=== PATIENT | female | born 1945 | race African-American/Black ===

== ENCOUNTER 2018-05-19 11:12 | Inpatient (IN) | payer BC, OTHER ==
[~2018-05-19] VITALS: Ht 152.4 cm; Wt 45.4 kg
[2018-05-19] MEDS ORDERED: ONDANSETRON ODT 4 MG TAB.RAPDIS SL ONE (11:15)
[2018-05-19] MEDS ORDERED: ONDANSETRON 4 MG/2 ML VIAL IV ONE (11:30)
[2018-05-19] MEDS ORDERED: IV NORMAL SALINE 1000 ML BAG IV ONE (11:30)
[2018-05-19 11:37] LABS: BASOPHILS # (AUTO) 0.1 K/uL (0.0-8.0); BASOPHILS % (AUTO) 0.9 % (0.0-2.0); EOSINOPHILS # (AUTO) 0.2 K/uL (0.0-0.7); EOSINOPHILS % (AUTO) 2.4 % (0.0-7.0); HEMATOCRIT 32.8 % (31.2-41.9); LYMPHOCYTES # (AUTO) 1.8 K/uL (20.0-40.0); MEAN CORPUSCULAR HEMOGLOBIN 33.4 uug (24.7-32.8); MEAN CORPUSCULAR HGB CONC 34 g/dL (32.3-35.6); MEAN CORPUSCULAR VOLUME 99.4 fL (75.5-95.3); MONOCYTES # (AUTO) 0.5 K/uL (2.0-10.0); NEUTROPHILS # (AUTO) 5.1 K/uL (1.8-8.9); NEUTROPHILS % (AUTO) 66.7 % (38.5-71.5); PLATELET COUNT (AUTO) 309 K/uL (179-408); WHITE BLOOD COUNT (AUTO) 7.7 K/uL (3.8-11.8)
[2018-05-19] MEDS ORDERED: ONDANSETRON 4 MG/2 ML VIAL ONE (11:37)
[2018-05-19 11:46] LABS: CARBON DIOXIDE 24 mmol/L (21-32); CHLORIDE 102 mmol/L (98-107); CREATININE 7.2 mg/dL (0.6-1.3); GLUCOSE 129 mg/dL (74-106); POTASSIUM 4.1 mmol/L (3.5-5.1); UREA NITROGEN, BLOOD 42 mg/dL (7-18)
[2018-05-19 11:51] LABS: ALANINE AMINOTRANSFERASE 14 U/L (14-59); ALKALINE PHOSPHATASE 56 U/L (50-136); ASPARTATE AMINOTRANSFERASE 15 U/L (15-37); BILIRUBIN,DIRECT 0.1 mg/dL (0.0-0.2); BILIRUBIN,TOTAL 0.4 mg/dL (0.2-1.0); LIPASE 297 U/L (73-393); TOTAL PROTEIN, SERUM 6.8 g/dL (6.4-8.2)
[2018-05-19] MEDS ORDERED: NIFE60TA69 PO (12:10)
[2018-05-19] MEDS ORDERED: SPIR25TA PO (12:10)
[2018-05-19] MEDS ORDERED: CHOL100062 PO (12:10)
[2018-05-19] MEDS ORDERED: LEVO88TA5 PO (12:10)
[2018-05-19] MEDS ORDERED: LISI-603 PO (12:10)
[2018-05-19] MEDS ORDERED: SIMV40TA2 PO (12:10)
[2018-05-19] MEDS ORDERED: METO50TA16 PO (12:10)
[2018-05-19] MEDS ORDERED: ONDANSETRON 4 MG/2 ML VIAL IV PRN (14:15)
[2018-05-19] MEDS ORDERED: MORPHINE SULFATE 2 MG/1 ML DISP.SYRIN IV PRN (14:15)
[2018-05-19] MEDS ORDERED: ACETAMINOPHEN 325 MG TABLET PO PRN (14:15)
[2018-05-19 16:11] VITALS: BP 146/61
[2018-05-19] MEDS: CHOLECALCIFEROL 1,000 UNIT TABLET PO SCH (17:31)
[2018-05-19 19:30] VITALS: BP 131/64
[2018-05-19] MEDS: SIMVASTATIN 40 MG TABLET PO SCH (20:24)
[2018-05-19] MEDS: LISINOPRIL 20 MG TABLET PO SCH (20:24)
[2018-05-19] MEDS: METOPROLOL TARTRATE 50 MG TABLET PO SCH (20:25)
[2018-05-20 00:05] VITALS: BP 139/58
[2018-05-20 04:56] VITALS: BP 146/58
[2018-05-20] MEDS: PANTOPRAZOLE SODIUM 40 MG TABLET.DR PO SCH (06:10)
[2018-05-20] MEDS: LEVOTHYROXINE SODIUM 88 MCG TABLET PO SCH (06:10)
[2018-05-20 06:53] LABS: BASOPHILS # (AUTO) 0.1 K/uL (0.0-8.0); BASOPHILS % (AUTO) 1.4 % (0.0-2.0); EOSINOPHILS # (AUTO) 0.2 K/uL (0.0-0.7); EOSINOPHILS % (AUTO) 3.7 % (0.0-7.0); HEMATOCRIT 28.5 % (31.2-41.9); HEMOGLOBIN 9.5 g/dL (10.9-14.3); LYMPHOCYTES % (AUTO) 18.5 % (20.5-51.5); MEAN CORPUSCULAR HEMOGLOBIN 33.5 uug (24.7-32.8); MEAN CORPUSCULAR HGB CONC 33 g/dL (32.3-35.6); MEAN CORPUSCULAR VOLUME 100.5 fL (75.5-95.3); MONOCYTES # (AUTO) 0.5 K/uL (2.0-10.0); MONOCYTES % (AUTO) 8.4 % (0.0-11.0); NEUTROPHILS # (AUTO) 3.8 K/uL (1.8-8.9); PLATELET COUNT (AUTO) 248 K/uL (179-408); RED BLOOD CELL COUNT(AUTO) 2.84 MIL/uL (3.63-4.92); WHITE BLOOD COUNT (AUTO) 5.5 K/uL (3.8-11.8)
[2018-05-20 07:00] LABS: ALANINE AMINOTRANSFERASE 12 U/L (14-59); ALKALINE PHOSPHATASE 58 U/L (50-136); ASPARTATE AMINOTRANSFERASE 11 U/L (15-37); BILIRUBIN,TOTAL 0.3 mg/dL (0.2-1.0); CARBON DIOXIDE 25 mmol/L (21-32); CHLORIDE 109 mmol/L (98-107); CREATININE 7.1 mg/dL (0.6-1.3); MAGNESIUM 1.9 mg/dL (1.8-2.4); PHOSPHOROUS 5.2 mg/dL (2.5-4.9); POTASSIUM 4.9 mmol/L (3.5-5.1); TOTAL PROTEIN, SERUM 5.8 g/dL (6.4-8.2); UREA NITROGEN, BLOOD 48 mg/dL (7-18)
[2018-05-20 07:59] LABS: IRON, SERUM 84 ug/dL (50-175)
[2018-05-20 08:08] LABS: CHOLESTEROL 139 mg/dL (<200); HDL CHOLESTEROL 39 mg/dL (40-60); TRIGLYCERIDES 133 MG/DL (30-150)
[2018-05-20] MEDS: CHOLECALCIFEROL 1,000 UNIT TABLET PO SCH ×2 (08:41→16:38)
[2018-05-20] MEDS: LISINOPRIL 20 MG TABLET PO SCH ×2 (08:41→20:33)
[2018-05-20] MEDS ORDERED: NIFEdipine XL 60 MG TABSR PO SCH (09:00)
[2018-05-20] MEDS: METOPROLOL TARTRATE 50 MG TABLET PO SCH (09:00)
[2018-05-20 09:42] LABS: GLUCOSE 94 mg/dL (74-106)
[2018-05-20 12:12] VITALS: BP 112/47
[2018-05-20 16:12] VITALS: BP 101/47
[2018-05-20] MEDS: CYANOCOBALAMIN 1000 MCG/ML VIAL IM SCH (18:40)
[2018-05-20] MEDS: FOLIC ACID 1 MG TABLET PO SCH (18:40)
[2018-05-20 20:00] VITALS: BP 90/44
[2018-05-20] MEDS ORDERED: SPIR50TA3 PO (20:18)
[2018-05-20] MEDS: SIMVASTATIN 40 MG TABLET PO SCH (20:33)
[2018-05-21 00:10] VITALS: BP 93/42
[2018-05-21 04:00] VITALS: BP 94/54
[2018-05-21] MEDS: LEVOTHYROXINE SODIUM 88 MCG TABLET PO SCH (06:15)
[2018-05-21] MEDS: PANTOPRAZOLE SODIUM 40 MG TABLET.DR PO SCH (06:15)
[2018-05-21 06:43] LABS: BASOPHILS # (AUTO) 0.1 K/uL (0.0-8.0); BASOPHILS % (AUTO) 1.3 % (0.0-2.0); EOSINOPHILS # (AUTO) 0.3 K/uL (0.0-0.7); EOSINOPHILS % (AUTO) 6.8 % (0.0-7.0); HEMATOCRIT 29.1 % (31.2-41.9); HEMOGLOBIN 9.7 g/dL (10.9-14.3); LYMPHOCYTES % (AUTO) 20.2 % (20.5-51.5); MEAN CORPUSCULAR HEMOGLOBIN 33.4 uug (24.7-32.8); MEAN CORPUSCULAR HGB CONC 33 g/dL (32.3-35.6); MEAN CORPUSCULAR VOLUME 100.1 fL (75.5-95.3); MONOCYTES # (AUTO) 0.5 K/uL (2.0-10.0); MONOCYTES % (AUTO) 9.2 % (0.0-11.0); NEUTROPHILS # (AUTO) 3.1 K/uL (1.8-8.9); NEUTROPHILS % (AUTO) 62.5 % (38.5-71.5); PLATELET COUNT (AUTO) 243 K/uL (179-408)
[2018-05-21 07:06] LABS: CARBON DIOXIDE 26 mmol/L (21-32); CHLORIDE 107 mmol/L (98-107); CREATININE 6.5 mg/dL (0.6-1.3); GLUCOSE 93 mg/dL (74-106); PHOSPHOROUS 5.5 mg/dL (2.5-4.9); POTASSIUM 4.7 mmol/L (3.5-5.1); UREA NITROGEN, BLOOD 54 mg/dL (7-18)
[2018-05-21] MEDS: FOLIC ACID 1 MG TABLET PO SCH (08:52)
[2018-05-21] MEDS: CYANOCOBALAMIN 1000 MCG/ML VIAL IM SCH (08:52)
[2018-05-21] MEDS: CHOLECALCIFEROL 1,000 UNIT TABLET PO SCH (08:52)
[2018-05-21 08:58] VITALS: BP 112/54
[2018-05-21] MEDS: LISINOPRIL 20 MG TABLET PO SCH (08:58)
[2018-05-21 11:39] VITALS: BP 118/53
[2018-05-21 13:00] VITALS: BP 118/53
[2018-05-21] MEDS ORDERED: NIFEdipine XL 30 MG TABSR PO SCH (13:00)
[2018-05-21] MEDS ORDERED: SPIR25TA4 PO (15:07)
[2018-05-21] MEDS ORDERED: NIFE30TA2 PO (15:07)
[2018-05-21] MEDS ORDERED: VITAMIN B PO (15:07)
[2018-05-21] MEDS ORDERED: FOLI1TAB16 PO (15:07)
[2018-05-21] MEDS ORDERED: NIFE30TA89 PO (15:07)
[2018-05-21] MEDS ORDERED: METO25TA6 PO (15:07)
== END 2018-05-21 16:00 | disposition home or self-care (01) | DRG 922 ==
LOC: ER 11:14 → TELE 12:47
PROVIDERS: ADMIT Internal Medicine; ATTEND Internal Medicine
DX: T67.1XXA Heat syncope, initial encounter (principal); N18.6 End stage renal disease; S06.0X1A Concussion with loss of consciousness of 30 minutes or less, initial encounter; I13.11 Hypertensive heart and chronic kidney disease without heart failure, with stage 5 chronic kidney disease, or end stage renal disease; E44.0 Moderate protein-calorie malnutrition; V53.5XXA Driver of pick-up truck or van injured in collision with car, pick-up truck or van in traffic accident, initial encounter; Y92.410 Unspecified street and highway as the place of occurrence of the external cause; Y93.89 Activity, other specified; X30.XXXA Exposure to excessive natural heat, initial encounter; E89.0 Postprocedural hypothyroidism; Z99.2 Dependence on renal dialysis; L80 Vitiligo; E53.8 Deficiency of other specified B group vitamins; I70.0 Atherosclerosis of aorta; S00.81XA Abrasion of other part of head, initial encounter; W22.11XA Striking against or struck by driver side automobile airbag, initial encounter; E78.5 Hyperlipidemia, unspecified; E88.09 Other disorders of plasma-protein metabolism, not elsewhere classified; D50.9 Iron deficiency anemia, unspecified; I25.2 Old myocardial infarction; Z83.3 Family history of diabetes mellitus; Z82.49 Family history of ischemic heart disease and other diseases of the circulatory system; R73.9 Hyperglycemia, unspecified; E55.9 Vitamin D deficiency, unspecified; R00.1 Bradycardia, unspecified
CPT/HCPCS: 36415; 70030-TC; 70450; 71045; 82746; 83550; 83690; 83735; 84100; 85025; 93005; 93307; 93880; A4663; J2405; J3420; J7030